=== PATIENT | male | born 1965 ===

== ENCOUNTER → 2023-01-27 07:02 | Outpatient (CLI) | payer OTHER, SELFPAY ==
--- NOTE | ~2023-01-27 | MR_ITS ---
EXAMINATION: MR lumbar spine wo con DATE: 01/27/2023 07:34 INDICATION: Low back pain with radiculopathy. Left leg pain and weakness. TECHNIQUE: Magnetic resonance imaging (MRI) of the lumbar spine was performed without intravenous con trast. Sequences included sagittal T2-weighted FSE, sagittal T2-weighted FS FSE, sagittal T1-weighted FSE, and axial T2-weighted FSE. COMPARISON: None FINDINGS: There is 3 mm retrolisthesis of L5 on S1. There are Schmorl's nodes at all levels. There is mild chronic anterior wedging of T12 vertebral body. There is mildly decreased disc height at L2-L3 and L3-L4. The conus medullaris is at T12-L1. The following disc levels are specifically discussed: T11-T12: The disc is bulging. There is a superimposed large extrusion from the right central zone to the left foraminal zone. There is moderate bilateral facet joint osteoarthritis. There is mild right and moderate left neural foraminal stenosis. There is mild central canal stenosis at the midline. The re is severe stenosis of left lateral recess. T12-L1: There is a left central extrusion. There is mild bilateral facet joint osteoarthritis. There is mild right neural foraminal stenosis. There is mild central canal stenosis. L1-L2: The disc is bulging. There is mild bilateral facet joint osteoarthritis. There is mild bilater al neural foraminal stenosis. There is no central canal stenosis. L2-L3: The disc is bulging and has an annular fissure. There is moderate bilateral facet joint osteoa rthritis. There is mild bilateral neural foraminal stenosis. There is mild central canal stenosis. L3-L4: The disc is bulging. There is mild bilateral facet joint osteoarthritis. There is mild bilater al neural foraminal stenosis. There is mild central canal stenosis. L4-L5: The disc is bulging and has an annular fissure. There is moderate bilateral facet joint osteoa rthritis. There is mild bilateral neural foraminal stenosis. There is no central canal stenosis. L5-S1: The disc is bulging. There is moderate bilateral facet joint osteoarthritis. There is mild kait ateral neural foraminal stenosis. There is mild central canal stenosis. IMPRESSION: 1. 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 2. Mild lumbar spondylosis. Reviewed, dictated and finalized at location A. IMPRESSION: 1. 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 2. Mild lumbar spondylosis.
== END ==
PROVIDERS: PCP Family Medicine
DX: R53.1 Weakness (principal); M47.896 Other spondylosis, lumbar region; M51.26 Other intervertebral disc displacement, lumbar region
CPT/HCPCS: 72148